=== PATIENT | male | born 1960 | race Caucasian/White ===

== ENCOUNTER 2019-09-30 11:03 | Day surgery (SDC) | payer BC ==
--- NOTE | 2019-09-20 22:38 | HP ---
CC: Dr. Faith's office * HISTORY AND PHYSICAL: DATE OF ADMISSION: 09/22/19 THIS PLANNED ADMISSION CANCELLED BECAUSE OF LOW PLATELETS NOTED ON PRE-OP LAB WORK. The patient will be admitted to Dr. Cristobal's service and he will be operating on him on 09/22/19. HISTORY OF PRESENT ILLNESS: Mr. Gregg is a 59-year-old male who will be admitted to Dr. 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 Mr. Gregg has been followed for the last several years by Dr. Faith because of myelodysplastic disorder, thrombocytopenia and more recently polycythemia vera. He had required several phlebotomines in the past. He has not been on any medications for his conditions until recently where he was started on hydroxyurea. The patient was referred to Dr. Cristobal because of microhematuria. On exam he was noted to have a right testicular mass. He had an office scrotal ultrasound which confirmed the presence of a 2 cm hypoechoic mass involving the right testes with increased peripheral vascularity. 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 The left scrotal ultrasound showed a hypodense area measuring less than one cm and it did not have any increased blood flow and the mass was indefinite in its characteristics. The patient had testicular markers which were normal. Because of the concern that the testicular masses might represent a lymphoma, the patient was again referred to Dr. Faith and his oncologist. For diagnostic and therapeutic purposes decision was made to proceed with a right radial orchiectomy and to continue observation of the left testes. Past history is relevant for moderate elevation of serum creatinine at 1.6. His renal ultrasound did not show any hydronephrosis and his cystoscopy was negative. PAST MEDICAL HISTORY: The patient denies hypertension, cardio-pulmonary diseases.. MEDICATIONS: His only medication is hydroxyurea. ALLERGIES: He denies any allergies to medications. FAMILY HISTORY: Positive for prostate carcinoma. SOCIAL HISTORY: He feels fine and is physically active and he works as a sustainable landscape architect. PERSONAL HISTORY: He is not a smoker. He denies recreational drug use. Negative mental history. PHYSICAL EXAMINATION GENERAL: He is a pleasant and healthy-looking white male. VITAL SIGNS: Blood pressure 140/80, pulse 90. LUNGS: Clear. HEART: Regular and rhythmic, no murmurs. He has no gynomastia. ABDOMEN: Soft, no masses, no tenderness and no CVA tenderness. EXTERNAL GENITALIA: Circumcised. No left testicular masses or left testicular enlargement is noted. There is a firm, slightly tender mass in the mid right testes, measuring about 2 cm and is consistent with testicular tumor. No inguinal hernias noted. Extremities show no edema. RECTAL EXAM: Done recently by Dr. Cristobal showed a non-suspicious prostate. IMPRESSION: 1. Right testicular mass with normal testicular markers. 2. Ill-defined hypoechoic area in the left testes, indefinite in etiology, on surveillance. 3. Thrombocytosis. 4. Thrombocytopenia. PLAN: Right radical orchiectomy for both diagnostic and therapeutic purposes. The patient understands that the right testicular mass might represent a lymphoma, however, other type of testicular tumors have to be ruled out. He also understands that the left testes has to observed with periodic scrotal ultrasounds. I discussed the upcoming surgery and the potential complications including small incidence of infection, and hematoma. All his questions were answered. [id number] #: [id number] DOUGLAS
[~2019-09-30 11:03] MED LIST: Buffered Lidocaine 1% SYRIN* 1 ML/SYRINGE INTRADERM ONE; Lactated Ringers 1000 ML Bag* 1,000 ML IV SCH
[2019-09-30] MEDS ORDERED: ceFAZolin 2 GM PREMIX in ORs 2 GM/50 ML BAG ONE (11:29)
[2019-09-30] MEDS ORDERED: Lidocaine 1% INJ* 10 MG/ML 30 ML SDV ONE (14:05)
[2019-09-30] MEDS ORDERED: fentaNYL* 50 MCG/ML 2 ML VIAL (100 MCG VIAL) ONE (14:12)
[2019-09-30] MEDS ORDERED: Midazolam* 1 MG/ML 2 ML VIAL (2 MG) ONE (14:12)
[2019-09-30] MEDS ORDERED: Dexamethasone IV* 4 MG/ML 1 ML (4 MG) ONE (14:55)
[2019-09-30] MEDS ORDERED: Propofol* 10 MG/ML 20 ML BTL ONE (14:55)
[2019-09-30] MEDS ORDERED: Ondansetron INJ* 2 MG/ML VIAL ONE (14:55)
[2019-09-30] MEDS ORDERED: Lidocaine 2% PF * 5 ML VIAL ONE (14:55)
[2019-09-30] MEDS ORDERED: Ketorolac INJ* 30 MG/ML 1 ML VIAL IV PRN (15:28)
[2019-09-30] MEDS ORDERED: HYDROmorphone INJ1* 1 MG/ML SYRINGE IV PRN (15:28)
[2019-09-30] MEDS ORDERED: Naloxone* 0.4 MG/ML 1 ML VIAL IV PRN (15:28)
[2019-09-30] MEDS ORDERED: Ketorolac INJ* 30 MG/ML 1 ML VIAL ONE (15:53)
[2019-09-30] MEDS ORDERED: oxyCODONE/Acetamin 5/325 MG* TAB ONE (17:07)
[2019-09-30 17:44] VITALS: BP 147/89
--- NOTE | 2019-09-30 21:43 | OP ---
CC: Dr. Ackerman; Dr. Woo Faith; Dr. Cristobal * DATE OF OPERATION: 09/30/19 - [facility] DATE OF : 62 SURGEON: Mao Cristobal MD. BEAD FILLER: Dr. Madrigal. ANESTHESIOLOGIST: Dr. Womack. ANESTHESIA: General. PRE-OP DIAGNOSIS: Right testicular mass. POST-OP DIAGNOSIS: Right testicular mass. OPERATIVE PROCEDURE: Right radical orchiectomy. COMPLICATIONS: None. ESTIMATED BLOOD LOSS: Less than 25 cc. SPECIMENS: Right testicle and spermatic cord. POSTOPERATIVE CONDITION: Stable. INDICATIONS: Patric Gregg is a 59-year-old gentleman who was evaluated for microscopic hematuria and was noted to have a testicular mass on the right side on examination. He is now being brought in for right radical orchiectomy. DESCRIPTION OF PROCEDURE: After induction of general anesthesia, the patient was placed on the operating table in supine position. The lower abdomen and external genitalia were prepped and draped in the usual sterile fashion. Right inguinal incision was made and was carried down through the Vahid's fascia. The external ring was identified and divided as was the part of the external oblique aponeurosis. The ilioinguinal nerves were carefully identified and preserved. His spermatic cord was identified and then encircled using a Jing drain and dissected proximally and distally. The proximal end was then secured using a #1 silk tie and 0 chromic suture ligature and then the cord was divided proximally. The proximal end was allowed to extract and the testicle was then delivered into the wound and the gubernacular attachment was sharply divided. Hemostasis appeared satisfactory at the end of the procedure. The wound was irrigated with sterile water and the external oblique approximated with interrupted sutures of 2-0 Vicryl. Vahid's was also approximated with interrupted sutures of 2-0 Vicryl and a total of about 20 cc of 1% Xylocaine local anesthetic was infiltrated into the subcutaneous tissue. Skin was approximated using running subcuticular 4-0 Vicryl sutures and Steri-Strips were applied. All sponge and needle counts were correct. The patient tolerated the procedure satisfactorily and was transferred back to recovery area in stable condition. [id number] #: [id number] MTDD
== END 2019-09-30 17:15 | disposition home or self-care (01) ==
LOC: OR 11:03
PROVIDERS: ATTEND Urology
DX: N50.89 Other specified disorders of the male genital organs (principal); R31.29 Other microscopic hematuria; D69.6 Thrombocytopenia, unspecified; Z80.42 Family history of malignant neoplasm of prostate
CPT/HCPCS: 88184; 88187; 88188; 88189; 88309; 88313; 88321; 88341; 88342; A9270-GY; J0690; J1100; J1885; J2250; J2405; J2704; J3010

== ENCOUNTER 2021-10-29 00:45 | Inpatient (IN) ==
[2021-10-29 01:14] LABS: Urine Appearance Clear; Urine Bilirubin Negative (Negative); Urine Blood Negative (Negative); Urine Color Yellow; Urine Glucose Negative (Negative); Urine Ketones Negative (Negative); Urine Nitrite Negative (Negative); Urine Protein 1+(30 mg/dL) (Negative); Urine Specific Gravity 1.015 (1.002-1.030); Urine Urobilinogen Negative (Negative)
[2021-10-29 01:16] LABS: Urine Bacteria 1+ (Absent); Urine Red Blood Cell Trace(0-2/hpf) (Absent); Urine Squamous Epithelial Cell Present (Absent); Urine White Blood Cell Trace(0-5/hpf) (Absent)
[2021-10-29 06:30] LABS: Hematocrit 35 % (42-52); Hemoglobin 11.8 g/dL (14.0-18.0); Mean Corpuscular HGB Conc 34 g/dL (31-36); Mean Corpuscular Hemoglobin 26 pg (27-31); Mean Corpuscular Volume 78 fL (80-94); Red Blood Count 4.52 10^6 /uL (4.18-5.48); Red Cell Distribution Width 29 % (10-15); White Blood Count 30.1 10^3/uL (3.5-10.8)
[2021-10-29 06:31] LABS: ABS Basophils 0.2 10^3/ul (0-0.2); ABS Eosinophils 0.1 10^3/ul (0-0.6); ABS Lymphocytes 1.1 10^3/ul (1.0-4.8); ABS Monocytes 4.2 10^3/ul (0-0.8); ABS Neutrophils 24.5 10^3/ul (1.5-7.7); Eosinophil % 0.2 %; Lymphocyte % 3.6 %
[2021-10-29 06:54] LABS: Mean Platelet Volume 9.7 fL (7.4-10.4); Platelet Count 194 10^3/uL (150-450)
[2021-10-29 07:03] LABS: Albumin 4.5 g/dL (3.2-5.2); Albumin/Globulin Ratio 1.9 (1-3); Calcium 8.4 mg/dL (8.6-10.3); Globulin 2.4 g/dL (2-4); Potassium 4.1 mmol/L (3.5-5.0); Total Bilirubin 1.3 mg/dL (0.2-1.0); Total Protein 6.9 g/dL (6.4-8.9); eGFR CKD-EPI 31.7 (>60)
[2021-10-29] MEDS ORDERED: cefTRIAXone 1 gm/50 mL D5W 1 GM/50 ML BAG IV ONE (07:08)
[2021-10-29] MEDS ORDERED: Ondansetron 4 mg VIAL 2 MG/ML 2 ml VIAL IV PRN (08:29)
[2021-10-29] MEDS ORDERED: NS 0.9% 1000 ml BAG 1,000 ML IV ONE (08:51)
[2021-10-29] MEDS: Aspirin EC 81 mg TAB.EC (enteric coated) PO SCH (10:31)
[2021-10-29] MEDS: Heparin 5000 UNITS/ML 1 mL VIAL SUBCUT SCH ×2 (15:03→21:05)
[2021-10-29] MEDS: RUXOLITINIB 5 MG PO SCH ×2 (15:55→16:30)
[2021-10-29] MEDS: PTO: Ruxolitinib 10 mg TAB (NF) PO SCH (21:06)
[2021-10-30] MEDS: Heparin 5000 UNITS/ML 1 mL VIAL SUBCUT SCH (05:28)
[2021-10-30 06:22] LABS: Hematocrit 33 % (42-52); Hemoglobin 11.3 g/dL (14.0-18.0); Mean Corpuscular HGB Conc 34 g/dL (31-36); Mean Corpuscular Hemoglobin 26 pg (27-31); Mean Corpuscular Volume 78 fL (80-94); Platelet Count 207 10^3/uL (150-450); Red Blood Count 4.29 10^6 /uL (4.18-5.48); Red Cell Distribution Width 29 % (10-15); White Blood Count 24.6 10^3/uL (3.5-10.8)
[2021-10-30 06:39] LABS: ABS Basophils 0.1 10^3/ul (0-0.2); ABS Eosinophils 0.1 10^3/ul (0-0.6); ABS Lymphocytes 1.4 10^3/ul (1.0-4.8); ABS Monocytes 3.5 10^3/ul (0-0.8); ABS Neutrophils 19.6 10^3/ul (1.5-7.7); Eosinophil % 0.3 %; Lymphocyte % 5.6 %
[2021-10-30 06:47] LABS: Anisocytosis 2+; Microcytosis 1+
[2021-10-30 06:48] LABS: Polychromasia 1+; Tear Drop Cells 1+
[2021-10-30 06:57] LABS: Calcium 7.9 mg/dL (8.6-10.3); Magnesium 2.1 mg/dL (1.9-2.7); Potassium 4.2 mmol/L (3.5-5.0); eGFR CKD-EPI 23.1 (>60)
[2021-10-30] MEDS: cefTRIAXone 1 gm/50 mL D5W 1 GM/50 ML BAG IV SCH (08:30)
[2021-10-30] MEDS: PTO: Ruxolitinib 10 mg TAB (NF) PO SCH ×2 (08:30→21:19)
[2021-10-30] MEDS: Aspirin EC 81 mg TAB.EC (enteric coated) PO SCH (08:30)
[2021-10-30] MEDS ORDERED: Lactated Ringers 1000 ml BAG 1,000 ML IV ONE (09:01)
[2021-10-30 09:08] LABS: C Reactive Protein 125.41 mg/L (<8.01)
[2021-10-30] MEDS ORDERED: Enoxaparin 80 MG/0.8 ML SYR SUBCUT SCH (12:00)
[2021-10-30 12:31] LABS: PSA Screening Total 0.858 ng/mL (0-4.000)
[2021-10-30] MEDS ORDERED: HYDROmorphone 0.5 MG/0.5 ML SYRINGE IV SLOW PU PRN (17:11)
[2021-10-30] MEDS ORDERED: Heparin DRIP 25,000 UNITS BAG 25,000 UNITS/500 ML BAG IV SCH (17:30)
[2021-10-30] MEDS ORDERED: Heparin 5000 UNITS/ML 1 mL VIAL IV SCH (18:00)
[2021-10-30 18:25] LABS: ABS Basophils 0.1 10^3/ul (0-0.2); ABS Eosinophils 0.1 10^3/ul (0-0.6); ABS Lymphocytes 1.9 10^3/ul (1.0-4.8); ABS Monocytes 3.9 10^3/ul (0-0.8); ABS Neutrophils 19.5 10^3/ul (1.5-7.7); Eosinophil % 0.4 %; Hematocrit 33 % (42-52); Hemoglobin 11.1 g/dL (14.0-18.0); Lymphocyte % 7.3 %; Mean Corpuscular HGB Conc 33 g/dL (31-36); Mean Corpuscular Hemoglobin 26 pg (27-31); Mean Corpuscular Volume 79 fL (80-94); Mean Platelet Volume 9.9 fL (7.4-10.4); Nucleated Red Blood Cells % 0.1; Platelet Count 211 10^3/uL (150-450); Red Blood Count 4.24 10^6 /uL (4.18-5.48); Red Cell Distribution Width 28 % (10-15); White Blood Count 25.4 10^3/uL (3.5-10.8)
[2021-10-30 19:05] LABS: eGFR CKD-EPI 23.5 (>60)
[2021-10-30] MEDS: Lactated Ringers 1000 ml BAG 1,000 ML IV SCH (20:16)
[2021-10-31] MEDS: Lactated Ringers 1000 ml BAG 1,000 ML IV SCH (05:57)
[2021-10-31] MEDS ORDERED: Lactated Ringers 1000 ml BAG 1,000 ML IV ONE (07:20)
[2021-10-31 08:41] LABS: Hematocrit 32 % (42-52); Hemoglobin 10.8 g/dL (14.0-18.0); Mean Corpuscular HGB Conc 34 g/dL (31-36); Mean Corpuscular Hemoglobin 26 pg (27-31); Mean Corpuscular Volume 78 fL (80-94); Mean Platelet Volume 9.5 fL (7.4-10.4); Platelet Count 197 10^3/uL (150-450); Red Blood Count 4.09 10^6 /uL (4.18-5.48); Red Cell Distribution Width 28 % (10-15)
[2021-10-31 08:56] LABS: ABS Basophils 0.1 10^3/ul (0-0.2); ABS Eosinophils 0.1 10^3/ul (0-0.6); ABS Lymphocytes 1.6 10^3/ul (1.0-4.8); ABS Monocytes 3.4 10^3/ul (0-0.8); ABS Neutrophils 17.8 10^3/ul (1.5-7.7); Eosinophil % 0.3 %; Lymphocyte % 7.1 %
[2021-10-31 09:26] LABS: Anion Gap 7 mmol/L (2-11); Blood Urea Nitrogen 39 mg/dL (6-24); CO2 Carbon Dioxide 25 mmol/L (22-32); Calcium 8.1 mg/dL (8.6-10.3); Chloride 103 mmol/L (101-111); Glucose 94 mg/dL (70-100); Potassium 4.3 mmol/L (3.5-5.0); Sodium 135 mmol/L (135-145); Total Iron Binding Capacity 272 mcg/dL (250-450); Transferrin 194 mg/dL (203-362); eGFR CKD-EPI 23.8 (>60)
[2021-10-31 09:46] LABS: Ferritin 115.9 ng/mL (24-336)
[2021-10-31 09:47] LABS: % Iron Saturation 7 % (15-55); Iron < 20 ug/dL (50-212); Unsaturated Iron Binding 252 ug/dL
[2021-10-31] MEDS: cefTRIAXone 1 gm/50 mL D5W 1 GM/50 ML BAG IV SCH (10:51)
[2021-10-31] MEDS: PTO: Ruxolitinib 10 mg TAB (NF) PO SCH ×2 (11:03→21:20)
[2021-10-31] MEDS: Aspirin EC 81 mg TAB.EC (enteric coated) PO SCH (11:03)
[2021-10-31] MEDS ORDERED: Midazolam 5 mg/5 ml VIAL 1 mg/ml 5 ml VIAL (5 mg) ONE (13:11)
[2021-10-31] MEDS ORDERED: Heparin 1,000 UNIT/ML 10 ml (10,000 UNITS) CATHLAB/DIALYSIS ONE (13:11)
[2021-10-31] MEDS ORDERED: Lidocaine 1% VIAL 10 MG/ML VIAL ONE (13:11)
[2021-10-31] MEDS ORDERED: fentaNYL 100 mcg/2 ml 50 MCG/ML VIAL ONE (13:11)
[2021-10-31] MEDS ORDERED: Iodixanol 320 (CONTRAST) 100 ML SDV ONE (13:12)
[2021-10-31] MEDS ORDERED: Heparin 2 UNITS/ML IVPREMIX 3,000 UNIT/1,500 ML BAG IV ONE (13:12)
[2021-10-31] MEDS ORDERED: NS 0.9% ONE (13:30)
[2021-10-31] MEDS ORDERED: ALTEPLASE ONE (13:30)
[2021-10-31] MEDS: Heparin DRIP 25,000 UNITS BAG 25,000 UNITS/500 ML BAG IV SCH ×2 (14:30→19:02)
[2021-10-31] MEDS: LACTATED RINGERS 1000 ML BAG IV SCH ×2 (14:30→19:02)
[2021-10-31 20:40] LABS: Hematocrit 30 % (42-52)
[2021-11-01 03:12] LABS: Hematocrit 30 % (42-52)
[2021-11-01 04:29] LABS: Hematocrit 29 % (42-52); Hemoglobin 9.7 g/dL (14.0-18.0); Mean Corpuscular HGB Conc 34 g/dL (31-36); Mean Corpuscular Hemoglobin 27 pg (27-31); Mean Corpuscular Volume 79 fL (80-94); Red Blood Count 3.65 10^6 /uL (4.18-5.48); Red Cell Distribution Width 28 % (10-15); White Blood Count 17.1 10^3/uL (3.5-10.8)
[2021-11-01 04:33] LABS: INR 1.48 (0.86-1.15)
[2021-11-01 04:52] LABS: Calcium 7.8 mg/dL (8.6-10.3); Potassium 4.6 mmol/L (3.5-5.0); eGFR CKD-EPI 26.5 (>60)
[2021-11-01 06:00] LABS: ABS Eosinophils 0.1 10^3/ul (0-0.6); ABS Lymphocytes 1.2 10^3/ul (1.0-4.8); ABS Monocytes 2.7 10^3/ul (0-0.8); Eosinophil % 0.4 %; Lymphocyte % 7.1 %; Mean Platelet Volume 9.8 fL (7.4-10.4); Nucleated Red Blood Cells % 0.1; Platelet Count 196 10^3/uL (150-450)
[2021-11-01] MEDS: Aspirin EC 81 mg TAB.EC (enteric coated) PO SCH (09:13)
[2021-11-01] MEDS: PTO: Ruxolitinib 10 mg TAB (NF) PO SCH ×2 (09:13→21:51)
[2021-11-01] MEDS: cefTRIAXone 1 gm/50 mL D5W 1 GM/50 ML BAG IV SCH (09:15)
[2021-11-01] MEDS ORDERED: Heparin 2 UNITS/ML IVPREMIX 0 UNIT/0 ML BAG IV ONE (09:20)
[2021-11-01] MEDS ORDERED: Lidocaine 1% VIAL 10 MG/ML VIAL ONE ×2 (09:20→12:12)
[2021-11-01] MEDS ORDERED: Heparin 2 UNITS/ML IVPREMIX 2,000 UNIT/1,000 ML BAG IV ONE (12:12)
[2021-11-01] MEDS ORDERED: Heparin 2 UNITS/ML 1000 mls 2,000 ML IV ONE (12:16)
[2021-11-01] MEDS ORDERED: Midazolam 5 mg/5 ml VIAL 1 mg/ml 5 ml VIAL (5 mg) ONE (12:38)
[2021-11-01] MEDS ORDERED: fentaNYL 100 mcg/2 ml 50 MCG/ML VIAL ONE (12:38)
[2021-11-01] MEDS ORDERED: Heparin 2 UNITS/ML IVPREMIX 1,000 UNIT/500 ML BAG IV ONE (13:11)
[2021-11-01] MEDS ORDERED: Iohexol 350 (CONTRAST) 200 ML MDV IV ONE (13:13)
[2021-11-01] MEDS ORDERED: Heparin 1,000 UNIT/ML 10 ml (10,000 UNITS) CATHLAB/DIALYSIS ONE (13:32)
[2021-11-02 06:22] LABS: Hematocrit 32 % (42-52); Hemoglobin 10.7 g/dL (14.0-18.0); Mean Corpuscular HGB Conc 33 g/dL (31-36); Mean Corpuscular Hemoglobin 27 pg (27-31); Mean Corpuscular Volume 80 fL (80-94); Mean Platelet Volume 9.9 fL (7.4-10.4); Platelet Count 219 10^3/uL (150-450); Red Blood Count 4.04 10^6 /uL (4.18-5.48); Red Cell Distribution Width 27 % (10-15); White Blood Count 21.3 10^3/uL (3.5-10.8)
[2021-11-02 06:24] LABS: ABS Basophils 0.1 10^3/ul (0-0.2); ABS Eosinophils 0.1 10^3/ul (0-0.6); ABS Lymphocytes 1.3 10^3/ul (1.0-4.8); ABS Monocytes 3.1 10^3/ul (0-0.8); ABS Neutrophils 16.8 10^3/ul (1.5-7.7); Eosinophil % 0.4 %; Lymphocyte % 6.2 %
[2021-11-02 06:53] LABS: Calcium 8.2 mg/dL (8.6-10.3); Potassium 4.7 mmol/L (3.5-5.0); eGFR CKD-EPI 39.4 (>60)
[2021-11-02] MEDS: Aspirin EC 81 mg TAB.EC (enteric coated) PO SCH (08:13)
[2021-11-02] MEDS: cefTRIAXone 1 gm/50 mL D5W 1 GM/50 ML BAG IV SCH (09:08)
[2021-11-02] MEDS: PTO: Ruxolitinib 10 mg TAB (NF) PO SCH (09:09)
[2021-11-02 12:22] VITALS: BP 142/58
== END 2021-11-02 13:38 | disposition home or self-care (01) | DRG 182 ==
LOC: EDHOLD 00:45 → ED 00:45 → SUATTDRO 08:58 → OBSVTOIN 08:58 → INTOOBSV 08:58 → EDHOLD 12:03 → MED 12:28 → ICU 10-31 15:03 → MEDTELE 11-02 03:35
PROVIDERS: ADMIT Internal Medicine; ATTEND Internal Medicine

== ENCOUNTER 2022-01-09 11:37 | Inpatient (IN) ==
[2022-01-09 14:50] LABS: Hematocrit 41 % (42-52); Hemoglobin 13.4 g/dL (14.0-18.0); Mean Corpuscular HGB Conc 33 g/dL (31-36); Mean Corpuscular Hemoglobin 27 pg (27-31); Mean Corpuscular Volume 83 fL (80-94); Mean Platelet Volume 11.3 fL (7.4-10.4); Platelet Count 185 10^3/uL (150-450); Red Blood Count 4.93 10^6 /uL (4.18-5.48); Red Cell Distribution Width 18 % (10-15); White Blood Count 38.1 10^3/uL (3.5-10.8)
[2022-01-09 14:57] LABS: INR 3.06 (0.86-1.15)
[2022-01-09 15:02] LABS: Urine Appearance Cloudy; Urine Bilirubin Negative (Negative); Urine Blood Negative (Negative); Urine Color Yellow; Urine Glucose Negative (Negative); Urine Ketones Negative (Negative); Urine Nitrite Negative (Negative); Urine Protein 2+(100 mg/dL) (Negative); Urine Specific Gravity 1.021 (1.002-1.030); Urine Urobilinogen Negative (Negative)
[2022-01-09 15:03] LABS: Urine Bacteria 1+ (Absent); Urine Granular Casts Present (Absent); Urine Red Blood Cell Trace(0-2/hpf) (Absent); Urine White Blood Cell Trace(0-5/hpf) (Absent)
[2022-01-09 15:49] LABS: Albumin 4.3 g/dL (3.2-5.2); Albumin/Globulin Ratio 1.8 (1-3); C Reactive Protein 159.84 mg/L (<8.01); Calcium 8.1 mg/dL (8.6-10.3); Globulin 2.4 g/dL (2-4); Potassium 4.9 mmol/L (3.5-5.0); Total Bilirubin 1.3 mg/dL (0.2-1.0); Total Protein 6.7 g/dL (6.4-8.9); eGFR CKD-EPI 27.1 (>60)
[2022-01-09 16:03] LABS: RBC Morphology Normal (Normal)
[2022-01-09 16:19] LABS: ABS Basophils 0.2 10^3/ul (0-0.2); ABS Eosinophils 0.1 10^3/ul (0-0.6); ABS Lymphocytes 2.4 10^3/ul (1.0-4.8); ABS Monocytes 2.5 10^3/ul (0-0.8); ABS Neutrophils 32.9 10^3/ul (1.5-7.7); ABS Nucleated RBC 0.1 10^3/ul; Eosinophil % 0.3 %; Lymphocyte % 6.4 %; Nucleated Red Blood Cells % 0.1
[2022-01-09] MEDS ORDERED: Piperacillin/Tazobac ADVAN 3.375 GM in NS 0.9% 100 ml BAG 100 ML IV ONE (20:53)
[2022-01-09] MEDS ORDERED: Vancomycin 1,500 MG in NS 0.9% 250 ml 250 ML IVPB ONE (21:30)
[2022-01-10 13:32] LABS: Phosphorus 4.2 mg/dL (2.5-5.0); Uric Acid 8.2 mg/dL (4.4-7.6)
[2022-01-10] MEDS ORDERED: Heparin 5000 UNITS/ML 1 mL VIAL SUBCUT SCH (16:34)
[2022-01-10 17:16] LABS: INR 2.12 (0.86-1.15)
[2022-01-10] MEDS ORDERED: Heparin DRIP 25,000 UNITS BAG 25,000 UNITS/500 ML BAG IV SCH (17:45)
[2022-01-10] MEDS ORDERED: Heparin 5000 UNITS/ML 1 mL VIAL IV SCH (18:00)
[2022-01-10] MEDS: ceFAZolin 1 GM in Dextrose 1 GM/50 ML BAG IVPB SCH (20:50)
[2022-01-10] MEDS: PTO: Ruxolitinib 10 mg TAB (NF) PO SCH (20:57)
[2022-01-11 05:16] LABS: Hematocrit 34 % (42-52); Hemoglobin 11.7 g/dL (14.0-18.0); Mean Corpuscular HGB Conc 34 g/dL (31-36); Mean Corpuscular Hemoglobin 28 pg (27-31); Mean Corpuscular Volume 83 fL (80-94); Mean Platelet Volume 10.4 fL (7.4-10.4); Nucleated Red Blood Cells % 0.1; Platelet Count 123 10^3/uL (150-450); Red Blood Count 4.15 10^6 /uL (4.18-5.48); Red Cell Distribution Width 18 % (10-15); White Blood Count 26.3 10^3/uL (3.5-10.8)
[2022-01-11 05:34] LABS: Calcium 8.1 mg/dL (8.6-10.3); Magnesium 2.1 mg/dL (1.9-2.7); Potassium 4.3 mmol/L (3.5-5.0); eGFR CKD-EPI 25.9 (>60)
[2022-01-11 08:28] LABS: Acanthocytes 1+; Anisocytosis 1+
[2022-01-11 08:44] LABS: ABS Basophils 0.3 10^3/ul (0-0.2); ABS Lymphocytes 3.4 10^3/ul (1.0-4.8); ABS Neutrophils 12.6 10^3/ul (1.5-7.7)
[2022-01-11] MEDS ORDERED: Aspirin EC 81 mg TAB.EC (enteric coated) PO SCH (09:00)
[2022-01-11] MEDS ORDERED: fentaNYL 100 mcg/2 ml 50 MCG/ML VIAL ONE (09:29)
[2022-01-11] MEDS ORDERED: Heparin DRIP 25,000 UNITS BAG 25,000 UNITS/500 ML BAG IV SCH (12:15)
[2022-01-11 12:25] LABS: Phosphorus 3.2 mg/dL (2.5-5.0)
[2022-01-11] MEDS: PTO: Ruxolitinib 10 mg TAB (NF) PO SCH ×2 (12:55→20:40)
[2022-01-11] MEDS ORDERED: Heparin 5000 UNITS/ML 1 mL VIAL IV SCH (13:00)
[2022-01-11] MEDS ORDERED: Lactated Ringers 1000 ml BAG 1,000 ML IV SCH (13:00)
[2022-01-11] MEDS: ceFAZolin 2 GM in NS PREMIX 2 GM/100 ML BAG IVPB SCH ×2 (13:05→20:50)
[2022-01-11] MEDS: ceFAZolin 1 GM in Dextrose 1 GM/50 ML BAG IVPB SCH (13:31)
[2022-01-11] MEDS ORDERED: Senna TAB 8.6 mg TAB PO PRN (18:19)
[2022-01-11] MEDS ORDERED: Polyethylene Glycol 3350 17 GM PACKET PO PRN (18:19)
[2022-01-12 07:06] LABS: Hematocrit 34 % (42-52); Hemoglobin 11.1 g/dL (14.0-18.0); Mean Corpuscular HGB Conc 33 g/dL (31-36); Mean Corpuscular Hemoglobin 27 pg (27-31); Mean Corpuscular Volume 83 fL (80-94); Mean Platelet Volume 10.2 fL (7.4-10.4); Platelet Count 117 10^3/uL (150-450); Red Blood Count 4.08 10^6 /uL (4.18-5.48); Red Cell Distribution Width 18 % (10-15); White Blood Count 17.8 10^3/uL (3.5-10.8)
[2022-01-12 08:14] LABS: Magnesium 2.1 mg/dL (1.9-2.7); Phosphorus 3.2 mg/dL (2.5-5.0); Potassium 3.8 mmol/L (3.5-5.0); eGFR CKD-EPI 27.6 (>60)
[2022-01-12] MEDS: PTO: Ruxolitinib 10 mg TAB (NF) PO SCH ×2 (08:50→19:55)
[2022-01-12] MEDS: ceFAZolin 2 GM in NS PREMIX 2 GM/100 ML BAG IVPB SCH ×2 (08:52→19:55)
[2022-01-12 09:56] LABS: C Reactive Protein 92.1 mg/L (<8.01)
[2022-01-12 11:57] LABS: ABS Basophils 0.1 10^3/ul (0-0.2); ABS Eosinophils 0.1 10^3/ul (0-0.6); ABS Lymphocytes 1.5 10^3/ul (1.0-4.8); ABS Monocytes 1.4 10^3/ul (0-0.8); ABS Neutrophils 14.7 10^3/ul (1.5-7.7); Eosinophil % 0.8 %; Lymphocyte % 8.7 %; Nucleated Red Blood Cells % 0.1
[2022-01-12 11:58] LABS: Acanthocytes 1+; Anisocytosis 1+
[2022-01-13 05:25] LABS: Hematocrit 32 % (42-52); Hemoglobin 10.5 g/dL (14.0-18.0); Mean Corpuscular HGB Conc 33 g/dL (31-36); Mean Corpuscular Hemoglobin 27 pg (27-31); Mean Corpuscular Volume 82 fL (80-94); Platelet Count 109 10^3/uL (150-450); Red Blood Count 3.91 10^6 /uL (4.18-5.48); Red Cell Distribution Width 18 % (10-15); White Blood Count 22.8 10^3/uL (3.5-10.8)
[2022-01-13 05:48] LABS: Potassium 4.1 mmol/L (3.5-5.0); eGFR CKD-EPI 28.3 (>60)
[2022-01-13 07:27] LABS: RBC Morphology Normal (Normal)
[2022-01-13] MEDS: PTO: Ruxolitinib 10 mg TAB (NF) PO SCH ×2 (08:12→21:16)
[2022-01-13] MEDS: ceFAZolin 2 GM in NS PREMIX 2 GM/100 ML BAG IVPB SCH ×2 (08:23→22:00)
[2022-01-13 08:31] LABS: Magnesium 2.1 mg/dL (1.9-2.7)
[2022-01-13 11:09] LABS: ABS Basophils 0.2 10^3/ul (0-0.2); ABS Eosinophils 0.2 10^3/ul (0-0.6); ABS Lymphocytes 4.1 10^3/ul (1.0-4.8)
[2022-01-14 06:53] LABS: Hematocrit 32 % (42-52); Hemoglobin 10.9 g/dL (14.0-18.0); Mean Corpuscular HGB Conc 34 g/dL (31-36); Mean Corpuscular Hemoglobin 28 pg (27-31); Mean Corpuscular Volume 83 fL (80-94); Mean Platelet Volume 10.4 fL (7.4-10.4); Platelet Count 104 10^3/uL (150-450); Red Blood Count 3.83 10^6 /uL (4.18-5.48); Red Cell Distribution Width 18 % (10-15); White Blood Count 18.4 10^3/uL (3.5-10.8)
[2022-01-14 07:18] LABS: Calcium 8.4 mg/dL (8.6-10.3); Potassium 4.6 mmol/L (3.5-5.0)
[2022-01-14 08:02] LABS: RBC Morphology Normal (Normal)
[2022-01-14 08:07] LABS: ABS Basophils 0.1 10^3/ul (0-0.2); ABS Eosinophils 0.2 10^3/ul (0-0.6); ABS Lymphocytes 1.9 10^3/ul (1.0-4.8); ABS Monocytes 1.4 10^3/ul (0-0.8); ABS Neutrophils 14.8 10^3/ul (1.5-7.7); Eosinophil % 1.1 %; Lymphocyte % 10.2 %; Nucleated Red Blood Cells % 0.1
[2022-01-14] MEDS: ceFAZolin 2 GM in NS PREMIX 2 GM/100 ML BAG IVPB SCH ×2 (10:38→22:12)
[2022-01-14] MEDS: PTO: Ruxolitinib 10 mg TAB (NF) PO SCH ×2 (10:58→21:06)
[2022-01-15 05:51] LABS: ABS Basophils 0.1 10^3/ul (0-0.2); ABS Eosinophils 0.2 10^3/ul (0-0.6); ABS Lymphocytes 2.3 10^3/ul (1.0-4.8); ABS Monocytes 2.1 10^3/ul (0-0.8); Eosinophil % 0.7 %; Hematocrit 31 % (42-52); Hemoglobin 10.5 g/dL (14.0-18.0); Lymphocyte % 10.2 %; Mean Corpuscular HGB Conc 34 g/dL (31-36); Mean Corpuscular Hemoglobin 28 pg (27-31); Mean Corpuscular Volume 82 fL (80-94); Mean Platelet Volume 10.8 fL (7.4-10.4); Nucleated Red Blood Cells % 0.1; Platelet Count 117 10^3/uL (150-450); Red Blood Count 3.74 10^6 /uL (4.18-5.48); Red Cell Distribution Width 18 % (10-15); White Blood Count 22.7 10^3/uL (3.5-10.8)
[2022-01-15 05:55] LABS: Anisocytosis 1+; Polychromasia 1+
[2022-01-15 06:01] LABS: Calcium 8.2 mg/dL (8.6-10.3); Potassium 4.6 mmol/L (3.5-5.0); eGFR CKD-EPI 32.2 (>60)
[2022-01-15] MEDS ORDERED: Naloxone 0.4 mg VIAL 0.4 mg/ml 1 ml VIAL ONE (07:52)
[2022-01-15] MEDS ORDERED: Flumazenil 0.5 mg/5 ml 0.1 MG/ML 5 ml VIAL ONE (07:52)
[2022-01-15] MEDS ORDERED: fentaNYL 100 mcg/2 ml 50 MCG/ML VIAL ONE (07:52)
[2022-01-15] MEDS ORDERED: Midazolam 5 mg/5 ml VIAL 1 mg/ml 5 ml VIAL (5 mg) ONE (07:52)
[2022-01-15] MEDS: ceFAZolin 2 GM in NS PREMIX 2 GM/100 ML BAG IVPB SCH (10:48)
[2022-01-15] MEDS: PTO: Ruxolitinib 10 mg TAB (NF) PO SCH (13:03)
[2022-01-15 14:44] VITALS: BP 130/67
[2022-01-15 16:48] LABS: Rapid COVID-19 Molecular Undetected (Undetected)
[2022-01-16 19:54] LABS: Heparin PF4 Antibody Interp Negative (Negative)
== END 2022-01-15 18:22 | disposition short-term general hospital (02) | DRG 710 ==
LOC: ED 11:37 → EDHOLD 01-10 12:42 → SUATTDRO 01-10 12:42 → EDHOLD 01-10 15:20 → MEDTELE 01-10 15:43
PROVIDERS: ADMIT Internal Medicine; ATTEND Internal Medicine